=== PATIENT | female | born 1965 | race Caucasian/White ===

== ENCOUNTER 2018-01-14 08:24 | Emergency (ER) | payer BC ==
[2018-01-14] MEDS ORDERED: NS 0.9% 1000 ML* 1,000 ML IV ONE (09:41)
[2018-01-14 09:56] LABS: ABS Basophils 0 10^3/ul (0-0.2); ABS Eosinophils 0.2 10^3/ul (0-0.6); ABS Lymphocytes 0.7 10^3/ul (1.0-4.8); ABS Monocytes 0.4 10^3/ul (0-0.8); ABS Neutrophils 6.1 10^3/ul (1.5-7.7); ABS Nucleated RBC 0 10^3/ul; Eosinophil % 2.7 % (0-6); Hematocrit 42 % (35-47); Lymphocyte % 9.4 % (25-47); Mean Corpuscular HGB Conc 34 g/dl (31-36); Mean Corpuscular Hemoglobin 31 pg (27-31); Mean Corpuscular Volume 91 fL (80-97); Mean Platelet Volume 6.9 um3 (7.4-10.4); Nucleated Red Blood Cells % 0; Platelet Count 275 10^3/ul (150-450); Red Blood Count 4.56 10^6/ul (4.00-5.40); Red Cell Distribution Width 13 % (10.5-15); White Blood Count 7.5 10^3/ul (3.5-10.8)
[2018-01-14 10:12] LABS: EGFR Non-African American 104.2 (>60)
[2018-01-14 10:21] LABS: Urine Appearance Cloudy; Urine Blood Negative (Negative); Urine Color Yellow; Urine Ketones Trace (Negative); Urine Protein Negative (Negative); Urine Specific Gravity 1.014 (1.010-1.030); Urine Urobilinogen Negative (Negative)
[2018-01-14] MEDS ORDERED: Ketorolac INJ* 30 MG/ML 1 ML VIAL IV PUSH ONE (10:43)
--- NOTE | 2018-01-14 11:33 | RAD ---
CLINICAL HISTORY: left flank pain COMPARISON: None TECHNIQUE: Multiple contiguous axial CT scans were obtained of the abdomen and pelvis, without intravenous contrast enhancement. Coronal and sagittal multiplanar reformations are submitted for review. Oral contrast was not administered. FINDINGS: The study is limited by the lack of intravenous contrast. This limits evaluation of the solid organs and vasculature. LUNG BASES: The lung bases are clear. LIVER: The liver is normal in shape, size, contour, and attenuation. BILE DUCTS: There is no intrahepatic or extrahepatic biliary dilatation. GALLBLADDER: Multiple gallstones are noted. There is no pericholecystic inflammatory change. PANCREAS: The pancreas is normal, without mass or ductal dilatation. SPLEEN: Normal in size and appearance. UPPER GI TRACT: Evaluation of the gastrointestinal tract is limited by incomplete gastric distention. There is a small sliding hiatal hernia. SMALL BOWEL AND MESENTERY: The small bowel is normal in contour, course, and caliber. There is no obstruction or dilatation. COLON: The colon is normal in contour, course, caliber. There is no pericolonic inflammatory change. ADRENALS: Normal bilaterally. KIDNEYS: There is a 0.2 cm calculus of the left UVJ. There is mild hydroureter and pelvocaliectasis. There is a 0.5 cm calculus of the lower pole of left kidney. BLADDER: [The left, there is a punctate calculus of the left UVJ. PELVIC ORGANS: The uterus and adnexa are grossly normal for technique. AORTA: The aorta is normal. IVC: Unremarkable LYMPH NODES: There is no lymphadenopathy by size criteria. ABDOMINAL WALL: There is no evidence for abdominal wall hernia. BONES AND SOFT TISSUES: There is a scoliotic curvature of the spine. Degenerative changes are noted. OTHER: None IMPRESSION: 1. LEFT-SIDED NEPHROLITHIASIS INCLUDING A 0.2 CM CALCULUS OF THE LEFT UVJ WITH MILD HYDRONEPHROSIS. 2. CHOLELITHIASIS. 3. SMALL HIATAL HERNIA.
--- NOTE | 2018-01-14 12:13 | ED ---
Back Pain - HPI Summary HPI Summary: Pt. is a 52 y.o female who presents to the ER for left flank pain x 2 days. Pain radiates to LUQ. Associated symptoms of nausea and vomiting. Pt. denies dysuria, hematuria, fever. No history of kidney stones. Pt. .states she has scoliosis and gets back pain frequently. Pt. denies any recent injury. Symptoms are moderate in severity. Pain is sharp in nature and not changed with movement. - History of Current Complaint Chief Complaint: EDFlankPain Stated Complaint: ABD PAIN Time Seen by Provider: 01/14/18 09:34 Hx Obtained From: Patient Pain Intensity: 10 - Allergies/Home Medications Allergies/Adverse Reactions: Allergies Allergy/AdvReac Type Severity Reaction Status Date / Time No Known Allergies Allergy Verified 01/14/18 09:11 Home Medications: Home Medications Amlodipine Besylate 2.5 mg DAILY 01/14/18 [History Confirmed 01/14/18] Synthroid 75 MCG TAB* 75 mcg DAILY 01/14/18 [History Confirmed 01/14/18] PMH/Surg Hx/FS Hx/Imm Hx Previously Healthy: Yes - Immunization History Immunizations Up to Date: Yes Infectious Disease History: No Infectious Disease History: Denies: Traveled Outside the [place] in Last 30 Days - Family History Family History: nonconntributory - Social History Occupation: Employed Full-time Lives: With Family Alcohol Use: Rare Substance Use Type: Reports: None Smoking Status (MU): Never Smoked Tobacco Review of Systems Constitutional: Negative Eyes: Negative ENT: Negative Cardiovascular: Negative Respiratory: Negative Positive: Abdominal Pain, Vomiting, Nausea Genitourinary: Negative Musculoskeletal: Negative Neurological: Negative All Other Systems Reviewed And Are Negative: Yes Physical Exam Triage Information Reviewed: Yes Vital Signs On Initial Exam: Initial Vitals Temp Pulse Resp BP Pulse Ox 98.4 F 75 20 140/87 100 01/14/18 08:24 01/14/18 08:24 01/14/18 08:24 01/14/18 08:24 01/14/18 08:24 Vital Signs Reviewed: Yes Appearance: Positive: Well-Appearing - Pt. lying in bed in NAD. Appears mildly uncomfortable. present. Skin: Positive: Warm, Dry, Other - No rash to flank Head/Face: Positive: Normal Head/Face Inspection Eyes: Positive: Normal, EOMI Neck: Positive: Supple Respiratory/Lung Sounds: Positive: Clear to Auscultation, Breath Sounds Present Cardiovascular: Positive: Normal, RRR Abdomen Description: Positive: Other: - Abd. is soft and nontender throughout. Mild left CVA tenderness. Neurological: Positive: Normal, CN Intact II-III Psychiatric: Positive: Affect/Mood Appropriate Diagnostics - Vital Signs Vital Signs Temp Pulse Resp BP Pulse Ox 01/14/18 12:00 80 96 01/14/18 11:44 75 131/81 98 01/14/18 11:16 74 98 01/14/18 11:14 71 119/69 99 01/14/18 10:49 70 134/79 95 01/14/18 10:14 69 122/74 98 01/14/18 10:00 66 98 01/14/18 09:56 66 147/83 98 01/14/18 09:44 71 122/75 95 01/14/18 09:14 68 129/76 96 01/14/18 09:08 67 97 01/14/18 08:24 98.4 F 75 20 140/87 100 - Laboratory Lab Results: Lab Results 01/14/18 01/14/18 01/14/18 Range/Units 09:44 09:44 10:04 WBC 7.5 (3.5-10.8) 10^3/ul RBC 4.56 (4.00-5.40) 10^6/ul Hgb 14.0 (12.0-16.0) g/dl Hct 42 (35-47) % MCV 91 (80-97) fL MCH 31 (27-31) pg MCHC 34 (31-36) g/dl RDW 13 (10.5-15) % Plt Count 275 (150-450) 10^3/ul MPV 6.9 L (7.4-10.4) um3 Neut % (Auto) 81.9 (38-83) % Lymph % (Auto) 9.4 L (25-47) % Dickenson % (Auto) 5.6 (0-7) % Eos % (Auto) 2.7 (0-6) % Baso % (Auto) 0.4 (0-2) % Absolute Neuts (auto) 6.1 (1.5-7.7) 10^3/ul Absolute Lymphs (auto) 0.7 L (1.0-4.8) 10^3/ul Absolute Monos (auto) 0.4 (0-0.8) 10^3/ul Absolute Eos (auto) 0.2 (0-0.6) 10^3/ul Absolute Basos (auto) 0 (0-0.2) 10^3/ul Absolute Nucleated RBC 0 10^3/ul Nucleated RBC % 0 Sodium 137 (135-145) mmol/L Potassium 3.8 (3.5-5.0) mmol/L Chloride 107 (101-111) mmol/L Carbon Dioxide 24 (22-32) mmol/L Anion Gap 6 (2-11) mmol/L BUN 22 (6-24) mg/dL Creatinine 0.60 (0.51-0.95) mg/dL Est GFR ( Amer) 126.1 (>60) Est GFR (Non-Af Amer) 104.2 (>60) BUN/Creatinine Ratio 36.7 H (8-20) Glucose 97 (70-100) mg/dL Calcium 8.8 (8.6-10.3) mg/dL Total Bilirubin 1.20 H (0.2-1.0) mg/dL AST 23 (13-39) U/L ALT 18 (7-52) U/L Alkaline Phosphatase 61 (34-104) U/L Total Protein 6.3 L (6.4-8.9) g/dL Albumin 4.0 (3.2-5.2) g/dL Globulin 2.3 (2-4) g/dL Albumin/Globulin Ratio 1.7 (1-3) Lipase 20 (11.0-82.0) U/L Urine Color Yellow Urine Appearance Cloudy Urine pH 8.0 (5-9) Ur Specific Forman 1.014 (1.010-1.030) Urine Protein Negative (Negative) Urine Ketones Trace A (Negative) Urine Blood Negative (Negative) Urine Nitrate Negative (Negative) Urine Bilirubin Negative (Negative) Urine Urobilinogen Negative (Negative) Ur Leukocyte Esterase Negative (Negative) Urine Glucose Negative (Negative) Result Diagrams: 01/14/18 09:44 01/14/18 09:44 Lab Statement: Any lab studies that have been ordered have been reviewed, and results considered in the medical decision making process. Back Pain Course/Dx - Course Course Of Treatment: Pt. presenting with intermittent left flank pain. Pain is currently minimal in ER and she declines pain medication. Afebrile with stable vital signs. Will start on IV fluids and obtain labs and urine. Labs unremarkable and u/a is negative for infection or blood. On re-exam pain is starting to return and pt. agrees with ct scan for further eval. Toradol ordered. CT scan shows left 2mm ureteral calculus at the UVJ with mild hydro, reading per radiology. On re-exam pt. resting comfortably and pain has improved. Results discussed. Will dc home with a few days of pain medication, zofran and flomax. To increase fluids. Strain urine. To f.u with PCP or urology if needed. TO return to ER for fever, uncontrolled vomiting or pain. Pt. .understands and agrees with plan. - Diagnoses Differential Diagnosis/HQI/PQRI: Positive: Arthritis, Herniated Disc, Renal Colic, Strain, Sprain Provider Diagnoses: Urolithiasis, Hydronephrosis Discharge - Sign-Out/Discharge Documenting (check all that apply): Patient Departure - Discharge Plan Condition: Good Disposition: HOME Prescriptions: Hydrocodone/Acetaminophen [Hydrocodone-Acetamin 5-325 mg] 1 each PO Q6H #12 tablet MDD 4tablets Ondansetron TAB* [Zofran 4 MG Tab*] 4 mg PO Q6H PRN #12 tab PRN Reason: Nausea Tamsulosin CAP* [Flomax CAP*] 0.4 mg PO DAILY #5 cap Patient Education Materials: Kidney Stones (ED) Referrals: Wes Love MD [Primary Care Provider] - He Shanks MD [Medical Doctor] - Additional Instructions: Follow up with your PCP or urology if needed Take medications as directed Increase fluids Strain urine Return to ER for increased pain, fever, uncontrollable vomiting or if concerned - Billing Disposition and Condition Condition: GOOD Disposition: Home
[2018-01-14 12:14] VITALS: BP 128/78
== END 2018-01-14 12:21 | disposition home or self-care (01) ==
LOC: ED 08:24
DX: N13.2 Hydronephrosis with renal and ureteral calculous obstruction (principal); K80.20 Calculus of gallbladder without cholecystitis without obstruction
CPT/HCPCS: 36415; 74176; 80053; 81003; 83690; 85025; 96361; 96374; 99283; J1885

== ENCOUNTER 2018-09-03 09:30 | Day surgery (SDC) | payer BC ==
--- NOTE | 2018-08-29 12:54 | HP ---
PREOPERATIVE HISTORY AND PHYSICAL: DATE OF SURGERY/ADMISSION: 09/03/18, for right wrist. 09/24/18, for left wrist. DATE OF OFFICE VISIT/ENCOUNTER: 08/28/18 ATTENDING SURGEON: Faustina Sim MD * (DICTATED BY FREDIS PALM) PROCEDURE: Right wrist carpal tunnel release, left wrist carpal tunnel release. CHIEF COMPLAINT: Numbness and tingling, bilateral hands. HISTORY OF PRESENT ILLNESS: This is a 52-year-old female who complains of numbness and tingling in her bilateral hands, a bit worse on the right than on the left, but both are quite painful for her. Symptoms have been ongoing since February 2018. She was quite active with gardening and outdoor activities and these things caused her numbness and tingling and pain in her hands. She has had trouble lately knitting because of this problem and it has become quite disruptive. She also is having problems sleeping at night. She has tried wrist braces but they were not helpful. She has also had physical therapy which has not given her any relief. She denies any specific injury. She denies neck pain. Clinically, she presents with bilateral carpal tunnel syndrome and the patient is interested in pursuing surgical interventions for both of her wrists. She would like to proceed with the right wrist first and then approximately 3 weeks later will have her left carpal tunnel released. PAST MEDICAL HISTORY: 1. Hypertension. 2. 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 3. Scoliosis. PAST SURGICAL HISTORY: 1. Ganglion excision from left wrist. 2. Tubal ligation in 1991. MEDICATIONS: 1. Amlodipine besylate 2.5 mg daily. 2. CoQ10 100 mg daily. 3. Vitamin D3 of 1000 units daily. 4. Multivitamin daily. 5. Synthroid 75 mcg daily. 6. Advil p.r.n. ALLERGIES: No known drug allergies. FAMILY MEDICAL HISTORY: Parkinson's, osteoporosis, osteoarthritis. SOCIAL HISTORY: The patient is a retired teacher. She denies tobacco use and recreational drug use. She does drink alcohol on occasion. REVIEW OF SYSTEMS: Negative for general, cephalic, cardiovascular, respiratory , GI, , other musculoskeletal, integumentary, endocrine, neurologic, and hematologic symptoms. Infectious Disease: Negative for MRSA, hepatitis C, HIV. PHYSICAL EXAMINATION GENERAL: Well-developed, well-nourished, 52-year-old female, in no acute distress. VITAL SIGNS: Height 5 feet 3 inches, weight 165 pounds, pulse rate 68, blood pressure 120/74. HEENT: Normocephalic, atraumatic. Pupils are equal, round, and reactive to light and accommodation. Extraocular movements are intact. Throat is clear. NECK: Supple. No palpable lymph nodes. CARDIOVASCULAR: Regular rate and rhythm. S1, S2. No murmurs, rubs, or gallops. No edema. ABDOMEN: Positive bowel sounds, soft, nontender. NEUROLOGICAL: Alert and oriented x3. Cranial nerves II through XII are intact. MUSCULOSKELETAL: On exam of bilateral hands, she has some mild thenar wasting on the right, but not on the left. She has weakness with thumb abduction bilaterally. She can fully flex and extend her fingers. She has positive Tinel sign at both median nerves. Skin sensation is decreased in the median nerve distribution bilaterally. Neck motion is good. IMPRESSION: Bilateral carpal tunnel syndrome. PLAN/RECOMMENDATIONS: The patient is scheduled to undergo a right wrist carpal tunnel release on 09/03/18, followed by a left wrist carpal tunnel release on . She will return to the office 10 days postoperatively for followup and suture removal. Her prescription for Ultracet was e-scribed to the patient's pharmacy for postoperative pain management. FREDIS PALM [id number]/[id number] #: [id number] [place]
[~2018-09-03 09:30] MED LIST: Buffered Lidocaine 1% SYRIN* 1 ML/SYRINGE INTRADERM ONE; Famotidine IV* 10 MG/ML 2 ML (20 mg) IV ONE; Lactated Ringers 1000 ML Bag* 1,000 ML IV SCH; Lidocaine 1% INJ* 10 MG/ML 30 ML SDV ONE
[2018-09-03] MEDS ORDERED: Famotidine IV* 10 MG/ML 2 ML (20 mg) ONE (10:39)
[2018-09-03] MEDS ORDERED: fentaNYL* 50 MCG/ML 2 ML VIAL (100 MCG VIAL) ONE (11:33)
[2018-09-03] MEDS ORDERED: Midazolam* 1 MG/ML 5 ML VIAL (5 MG) ONE (11:34)
[2018-09-03] MEDS ORDERED: Lidocaine 2% PF * 5 ML VIAL ONE (11:35)
[2018-09-03] MEDS ORDERED: Ketorolac INJ* 30 MG/ML 1 ML VIAL ONE (11:35)
[2018-09-03] MEDS ORDERED: Propofol* 10 MG/ML 20 ML BTL ONE (11:35)
[2018-09-03] MEDS ORDERED: Ondansetron INJ* 2 MG/ML VIAL ONE (11:37)
[2018-09-03] MEDS ORDERED: Acetaminophen TAB* 325 MG PO PRN (11:56)
[2018-09-03] MEDS ORDERED: DiMENhydriNATE IV* 50 MG/ML VIAL IV PUSH PRN (11:56)
[2018-09-03 12:40] VITALS: BP 125/78
--- NOTE | 2018-09-03 16:13 | OP ---
DATE OF OPERATION: 09/03/[address] [facility] DATE OF : 61 SURGEON: Dr. Sim. PURE CULTURE OPERATOR: FREDIS Palencia. ANESTHESIA: Local MAC. PRE-OP DIAGNOSIS: Right carpal tunnel syndrome. POST-OP DIAGNOSIS: Right carpal tunnel syndrome. OPERATIVE PROCEDURE: Right carpal tunnel release. ESTIMATED BLOOD LOSS: Zero. TOURNIQUET TIME: About 10 minutes. INDICATION FOR PROCEDURE: Angel is a 52-year-old woman with numbness and tingling in the median nerve distribution of her right hand. She presents for right carpal tunnel release. DESCRIPTION OF PROCEDURE: The patient was brought to the operating room and was given a sedation anesthetic and a local infiltration of 10 cc of 1% plain lidocaine in the palm of her right hand. The skin of her right hand and fore- arm was prepped and draped in the usual sterile fashion. The hand and forearm were exsanguinated. The tourniquet elevated to 250 mmHg. A longitudinal incision was made in the palm in line with the ring finger. We dissected through subcutaneous tissue down to the transverse carpal ligament. The ligament was divided sharply with a knife and then more proximally with the scissors. The nerve was dissected free from the surrounding tissue and there was an area of significant compression and some bloody tenosynovitis around the median nerve. This was debrided. The wound was irrigated and the skin edges were reapproximated with 4-0 nylon suture. The wound was dressed with Xeroform , 4x4, Webril, and an Long wrap. The patient tolerated the procedure well and was brought to the recovery room in good condition. [id number]/[facility] #: [id number] [facility]
== END 2018-09-03 13:07 | disposition home or self-care (01) ==
LOC: OREAST 09:30
PROVIDERS: ATTEND Orthopaedic Surgery
DX: G56.01 Carpal tunnel syndrome, right upper limb (principal); I10 Essential (primary) hypertension; E03.9 Hypothyroidism, unspecified
CPT/HCPCS: J1885; J2250; J2405; J2704; J3010

== ENCOUNTER 2018-09-17 10:09 | Day surgery (SDC) | payer BC ==
[~2018-09-17 10:09] MED LIST changes: +Dexamethasone IV* 4 MG/ML 1 ML (4 MG) IV SLOW PU ONE; -Lidocaine 1% INJ* 10 MG/ML 30 ML SDV ONE
[2018-09-17] MEDS ORDERED: Famotidine IV* 10 MG/ML 2 ML (20 mg) ONE (10:44)
[2018-09-17] MEDS ORDERED: Dexamethasone IV* 4 MG/ML 1 ML (4 MG) ONE (10:44)
[2018-09-17] MEDS ORDERED: Lidocaine 1% INJ* 10 MG/ML 30 ML SDV ONE (13:12)
[2018-09-17] MEDS ORDERED: Ketorolac INJ* 30 MG/ML 1 ML VIAL ONE (13:15)
[2018-09-17] MEDS ORDERED: fentaNYL* 50 MCG/ML 2 ML VIAL (100 MCG VIAL) ONE (13:15)
[2018-09-17] MEDS ORDERED: Midazolam* 1 MG/ML 5 ML VIAL (5 MG) ONE (13:15)
[2018-09-17] MEDS ORDERED: Propofol* 10 MG/ML 20 ML BTL ONE (13:15)
[2018-09-17] MEDS ORDERED: Ondansetron INJ* 2 MG/ML VIAL ONE (13:15)
[2018-09-17] MEDS ORDERED: Naloxone* 0.4 MG/ML 1 ML VIAL IV PRN (13:31)
[2018-09-17 14:16] VITALS: BP 110/68
--- NOTE | 2018-09-18 00:35 | OP ---
DATE OF OPERATION: 09/17/18 [facility] DATE OF : 61 SURGEON: Faustina Sim MD. WORLD LANGUAGE TEACHER: FREDIS Palencia. ANESTHESIA: Local MAC. PRE-OP DIAGNOSIS: Left carpal tunnel syndrome. POST-OP DIAGNOSIS: Left carpal tunnel syndrome. OPERATIVE PROCEDURE: Left carpal tunnel release. ESTIMATED BLOOD LOSS: Zero. TOURNIQUET TIME: Approximately 8 minutes. INDICATION FOR PROCEDURE: Angel is a 52-year-old woman with numbness and tingling in the median nerve distribution of her left hand. She presents for left carpal tunnel release. DESCRIPTION OF PROCEDURE: The patient was brought to the operating room, was given a sedation anesthetic, and a local infiltration of 10 cc of 1% plain lidocaine in the palm of her left hand. Skin of her left hand and forearm was prepped and draped in the usual sterile fashion. The hand and forearm were exsanguinated and the tourniquet elevated to 250 mmHg. A longitudinal incision was made in the palm in line with the ring finger. We dissected through the subcutaneous tissue down to the transverse carpal ligament. The ligament was divided sharply with the knife and then more proximally with the scissors. The nerve was dissected free from the surrounding tissue and there was an area of moderate compression at the mid portion of the ligament. The wound was irrigated and the skin edges were reapproximated with 4-0 nylon suture. The wound was dressed with Xeroform, 4x4, Webril, and an Long wrap. The patient tolerated the procedure well and was brought to the recovery room in good condition. [id number]/[id number] #: [id number] [facility]ITALBrenton
== END 2018-09-17 14:17 | disposition home or self-care (01) ==
LOC: OREAST 10:09
PROVIDERS: ATTEND Orthopaedic Surgery
DX: G56.02 Carpal tunnel syndrome, left upper limb (principal); I10 Essential (primary) hypertension; E03.9 Hypothyroidism, unspecified; M41.9 Scoliosis, unspecified
CPT/HCPCS: J1100; J1885; J2250; J2405; J2704; J3010